=== PATIENT | male | born 1930 | race Hispanic/Latino ===

== ENCOUNTER → 2018-11-10 | Outpatient (CLI) | payer MEDICARE ==
[~2018-11-10] MED LIST: METOPROLOL PO; SIMV40TA5 PO; TAMS-1 PO
== END | disposition home or self-care (01) ==
LOC: OIH 15:52
PROVIDERS: ATTEND Internal Medicine
DX: M81.0 Age-related osteoporosis without current pathological fracture (principal); M85.871 Other specified disorders of bone density and structure, right ankle and foot; M79.89 Other specified soft tissue disorders; L97.419 Non-pressure chronic ulcer of right heel and midfoot with unspecified severity
CPT/HCPCS: 73620